=== PATIENT | male | born 1955 | race Caucasian/White ===

== ENCOUNTER → 2016-08-10 | Outpatient (CLI) | payer OTHER ==
[~2016-08-10] MED LIST: ALDACTONE100 MG PO; AMLODIPINE BESYL5 MG PO; BAYER CHEWABLE81 MG PO; HYDROCHLOROTHIA25 MG PO; LASIX PO; MULTI-DAY PLUS1 EAC1 PO; NO MEDICATIONS; PROTONIX PO; THERAPEUTIC FOR1 TA1 PO; THIAMINE HCL100 M1 PO
--- NOTE | ~2016-08-10 | CR169 ---
[facility]. [facility] A Service of [facility] & [facility] RADIOLOGY TEXT RESULTS PATIENT: BRADLEY BAGLEY LOCATION: [facility] : 55 UNIT #: [id number] AGE: [address]: Elizabeth Carlton MD SEX: M ORDER DR: [id number] [place] [address] [id number] O MR#: [id number] Acc #: [id number] NAME: BRADLEY BAGLEY : 1955 SEX: M STUDY DATE/TIME: 08/10/2016 13:07 UNIT: SRAD ROOM: STUDY DESCRIPTION: CR Knee 2 Views Lt Attending Physician: Elizabeth Carlton M.D. Referring Physician: Elizabeth Carlton M.D. Ordering Physician: Elizabeth Carlton M.D. Primary Care Physician: Michael Carlton M.D. MEDICAL IMAGING REPORT This report is preliminary unless electronic signature is present. EXAM Left knee, 08/10 INDICATION Knee pain and swelling for one week. FINDINGS Two views of the left knee were obtained. There is enthesophyte formation in the anterior patella, both the superior and inferior poles. There is also enthesophyte formation at the tibial tubercle. No fractures are seen and there is no joint effusion. Alignment is normal. IMPRESSION No acute findings in the knee. Dictated by... Reji Egan Jr., M.D. THIS IS AN ELECTRONICALLY VERIFIED REPORT Reji Egan Jr., M.D. at 08/12/2016 6:06 AM BIRDIE/geri TD: 08/11/2016 10:50 JOB #: [id number] MEDICAL IMAGING REPORT Page 1 of 1
== END | disposition home or self-care (01) ==
LOC: SRAD 12:53
DX: M25.462 Effusion, left knee (principal); M25.562 Pain in left knee
CPT/HCPCS: 73560

== ENCOUNTER → 2016-11-28 | Outpatient (CLI) | payer OTHER ==
--- NOTE | ~2016-11-28 | US5 ---
[facility] A Service of [facility] & [facility] RADIOLOGY TEXT RESULTS PATIENT: BRADLEY BAGLEY LOCATION: [facility] : 55 UNIT #: [id number] AGE: [address]: Jemal Tubbs MD SEX: M ORDER DR: [id number] [address] [address] [id number] O MR#: [id number] Acc #: [id number] NAME: BRADLEY BAGLEY : 1955 SEX: M STUDY DATE/TIME: 11/28/2016 9:50 UNIT: SGUS ROOM: STUDY DESCRIPTION: US Abdominal Complete Attending Physician: Jemal Tubbs III, M.D. Referring Physician: Jemal Tubbs III, M.D. Ordering Physician: Jemal Tubbs III, M.D. Primary Care Physician: Michael Carlton M.D. MEDICAL IMAGING REPORT This report is preliminary unless electronic signature is present. EXAM Abdominal ultrasound complete 11/28/2016 HISTORY Hepatitis C virus diagnosed 3-4 months ago. TECHNIQUE Sonographic imaging of the abdomen was performed. COMPARISON STUDIES We have no comparisons. FINDINGS Portions of the abdomen were obscured by bowel gas not seen or evaluated. Pancreas not well visualized or assessed. Liver has a coarsened echotexture and cirrhotic features and measures only about 13.4 cm long axis. There is no focal liver mass, ascites or intrahepatic ductal dilatation but the liver would be better assessed and characterized with multiphase protocol with and without contrast MRI or CT, if not recently performed. There is cholelithiasis without evidence of acute cholecystitis. The largest stone measures 12 mm. The extrahepatic common bile duct measures 3 mm. The kidneys are non-obstructed with the right measuring up to 12 cm long axis and the left 11.6 cm. No shadowing stone on either side. Segmentally visualized aorta and IVC are unremarkable. Spleen enlarged measuring 13.9 cm long axis. IMPRESSION 1. Imaging features most characteristic of cirrhosis. The liver could would be better characterized with cross-sectional imaging with and without contrast, as described, if not recently performed. 2. Splenomegaly but no evidence of ascites. 3. Cholelithiasis. STS. [facility] A Service of [facility] & [facility] RADIOLOGY TEXT RESULTS PATIENT: BRADLEY BAGLEY LOCATION: [facility] : 55 UNIT #: [id number] AGE: [address]: Jemal Tubbs MD SEX: M ORDER DR: Dictated by... Shmuel Calvert M.D. THIS IS AN ELECTRONICALLY VERIFIED REPORT Shmuel Calvert M.D. at 11/30/2016 3:25 PM FRANCIA/sue TD: 11/29/2016 00:14 JOB #: [id number] MEDICAL IMAGING REPORT Page 1 of 1
== END | disposition home or self-care (01) ==
LOC: SGUS 09:06
DX: B18.2 Chronic viral hepatitis C (principal); K80.20 Calculus of gallbladder without cholecystitis without obstruction; R16.1 Splenomegaly, not elsewhere classified
CPT/HCPCS: 76700